=== PATIENT | female | born 1980 | race Caucasian/White ===

== ENCOUNTER → 2016-11-21 | Outpatient (CLI) | payer OTHER ==
[~2016-11-21] MED LIST: BCPILLS PO; CALCIPOTRIENE TOP; CLOBETASOL EXT; DESONIDE EXT; FISHOIL PO; FLUOCINONIDE EXT; LEVO125T72 PO; MULTTAB58 PO; SALICYLIC ACID EXT
[2016-11-21 14:54] LABS: THYROID STIMULATING HORMONE 2.79 uIu/ml (0.300-4.500)
== END | disposition home or self-care (01) ==
LOC: C.LABSPEC 14:23
PROVIDERS: ATTEND Internal Medicine
DX: E03.9 Hypothyroidism, unspecified (principal); N91.2 Amenorrhea, unspecified

== ENCOUNTER → 2017-11-26 | Outpatient (CLI) | payer OTHER ==
--- NOTE | 2017-11-26 20:40 | DIAGNOSTIC IMAGING REPORT ---
ORBIT COMBO CLINICAL HISTORY: 37 years-old Female presenting with EXOPHTHALMIA. TECHNIQUE: Multisequence, multiplanar MR imaging of the orbits was performed before and after the administration of intravenous contrast. IV contrast: 4.5 mL of Gadavist. COMPARISON: Thyroid treatment from 2006 for Graves' disease. FINDINGS: Localizer images: Unremarkable. Normal midline sagittal structures. Bilateral globes are symmetric. Globes are seated symmetrically and normally relative to the interzygomatic line. No MR evidence of proptosis. No abnormal thickening of the intraorbital musculature. Orbits normal. Optic nerves normal. Visualized cranial nerves normal. No abnormal enhancement on postcontrast imaging. IMPRESSION: No MR evidence of proptosis. No abnormal enhancement. Electronically signed by: Elpidio Solis M.D. 11/26/2017 8:39 PM Dictated Date/Time: 11/26/2017 8:31 PM
== END | disposition home or self-care (01) ==
LOC: C.MRI 19:08
PROVIDERS: ATTEND Internal Medicine
DX: H53.8 Other visual disturbances (principal); H05.20 Unspecified exophthalmos

== ENCOUNTER → 2017-12-01 | Outpatient (CLI) | payer OTHER | END | disposition home or self-care (01) | LOC: C.LABSPEC 17:06 | PROVIDERS: ATTEND Internal Medicine | DX: R19.7 Diarrhea, unspecified (principal) ==